=== PATIENT | female | born 1940 | race Caucasian/White ===

== ENCOUNTER 2022-10-07 07:56 | Inpatient (IN) | payer MEDICARE, MEDICAID ==
[2022-10-07] VITALS (9 sets, daily range): BP systolic 135–162; BP diastolic 59–98
[~2022-10-07] VITALS: Ht 155 cm; Wt 62.6 kg
[~2022-10-07 07:56] MED LIST: NICARDIPINE 100MCG/ML 10ML VIAL (CATH LAB) IV ONE; NITROGLYCERIN 50MCG/ML 10ML VIAL (CATH LAB) IV ONE
[2022-10-07] MEDS ORDERED: CLOP-31 PO (08:58)
[2022-10-07] MEDS ORDERED: AMLO10TA80 PO (08:58)
[2022-10-07] MEDS ORDERED: ATOR40TA70 PO (08:58)
[2022-10-07] MEDS ORDERED: LOSA50TA41 PO (08:58)
[2022-10-07] MEDS ORDERED: GABA-532 PO (08:58)
[2022-10-07] MEDS ORDERED: INSU100V40 (08:58)
[2022-10-07] MEDS ORDERED: CARV25TA47 PO (08:58)
[2022-10-07] MEDS ORDERED: ASCO-339 PO (09:04)
[2022-10-07] MEDS ORDERED: VITA400T9 PO (09:04)
[2022-10-07] MEDS ORDERED: VITA-261 PO (09:04)
[2022-10-07] MEDS ORDERED: LIDOCAINE HCL/PF 1% 10 MG/ML 5ML VIAL ONE (11:01)
[2022-10-07] MEDS ORDERED: IODIXANOL 320MG/ML 100 ML BOTTLE IV ONE (11:01)
[2022-10-07] MEDS ORDERED: HEPARIN 1000 UNITS/ML 10ML ONE (11:01)
[2022-10-07] MEDS ORDERED: FENTANYL CITRATE/PF 50MCG/ML 2ML VIAL ONE (11:01)
[2022-10-07] MEDS ORDERED: MIDAZOLAM HCL 2 MG/2 ML VIAL ONE (11:02)
[2022-10-07] MEDS ORDERED: ATROPINE SULFATE 1MG/10ML SYR ONE (11:24)
[2022-10-07] MEDS ORDERED: EPINEPHRINE 1:1000 1 MG/ML AMP ONE ×2 (11:27)
[2022-10-07] MEDS ORDERED: CLOPIDOGREL 75MG TABLET ONE (12:10)
[2022-10-07] MEDS ORDERED: ASPIRIN 325MG TABLET ONE (12:10)
[2022-10-07] MEDS ORDERED: ACETAMINOPHEN 325MG TABLET PO PRN (12:30)
[2022-10-07] MEDS: LOSARTAN POTASSIUM 25 MG TABLET PO SCH (12:30)
[2022-10-07] MEDS ORDERED: ONDANSETRON HCL 4MG/2ML INJ IV PRN (12:30)
[2022-10-07] MEDS ORDERED: ATROPINE SULFATE 1MG/10ML SYR IV PRN (12:30)
[2022-10-07] MEDS ORDERED: DEXTROSE 50% WATER 50ML SYRINGE IV PRN (14:45)
[2022-10-07] MEDS: BLOOD SUGAR DIAGNOSTIC STRIP TEST SCH ×2 (16:50→20:28)
[2022-10-07] MEDS: INSULIN LISPRO 100 UNITS/ML SUBCUT SCH ×2 (17:09→20:28)
[2022-10-07] MEDS: AMLODIPINE 5MG TABLET PO SCH (17:16)
[2022-10-07] MEDS: CARVEDILOL 3.125 MG TABLET PO SCH (20:31)
[2022-10-08 00:01] VITALS: BP 163/61
[2022-10-08 01:47] VITALS: BP 111/46
[2022-10-08 04:00] VITALS: BP 154/76
[2022-10-08] MEDS: BLOOD SUGAR DIAGNOSTIC STRIP TEST SCH (06:11)
[2022-10-08] MEDS: INSULIN LISPRO 100 UNITS/ML SUBCUT SCH ×2 (07:20→12:52)
[2022-10-08 07:22] LABS: BASOPHILS % 0.6 % (0.0-2.0); EOSINOPHILS % 1.6 % (0.0-5.0); HEMATOCRIT. 36.9 % (36.0-48.0); HEMOGLOBIN. 12.3 g/dL (12.0-16.0); LYMPHOCYTES % 15.7 % (20.0-50.0); MEAN CORPUSCULAR HEMOGLOBIN 28.7 pg (28.0-32.0); MEAN PLATELET VOLUME 9.2 fl (7.4-10.4); NEUTROPHILS % 73.1 % (40.0-76.0); PLATELET 178 x1000/uL (130-400); RED BLOOD CELL COUNT 4.29 mill/uL (4.2-5.4); RED CELL DISTRIBUTION WIDTH 15.2 % (11.6-14.6)
[2022-10-08 08:14] VITALS: BP 160/74
[2022-10-08] MEDS ORDERED: CLOPIDOGREL 75MG TABLET PO SCH (09:00)
[2022-10-08] MEDS ORDERED: ASPIRIN 325MG TABLET PO SCH (09:00)
[2022-10-08] MEDS: LOSARTAN POTASSIUM 25 MG TABLET PO SCH (09:41)
[2022-10-08] MEDS: CARVEDILOL 3.125 MG TABLET PO SCH (09:43)
[2022-10-08] MEDS: AMLODIPINE 5MG TABLET PO SCH (09:43)
[2022-10-08 11:52] VITALS: BP 152/60
== END 2022-10-08 13:10 | disposition home health service (06) | DRG 247 ==
LOC: CCL 07:56 → 3WST 07:57
PROVIDERS: ADMIT Specialist; ATTEND Specialist
PROC: 027034Z Dilation of Coronary Artery, One Artery with Drug-eluting Intraluminal Device, Percutaneous Approach (ICD-10-PCS; principal; 2022-10-07)
PROC: 4A023N7 Measurement of Cardiac Sampling and Pressure, Left Heart, Percutaneous Approach (ICD-10-PCS; 2022-10-07)
PROC: B211YZZ Fluoroscopy of Multiple Coronary Arteries using Other Contrast (ICD-10-PCS; 2022-10-07)
DX: I25.10 Atherosclerotic heart disease of native coronary artery without angina pectoris (principal); E11.9 Type 2 diabetes mellitus without complications; E78.5 Hyperlipidemia, unspecified; I10 Essential (primary) hypertension; Z79.02 Long term (current) use of antithrombotics/antiplatelets; Z79.4 Long term (current) use of insulin; Z79.899 Other long term (current) drug therapy
CPT/HCPCS: 36415; 80048; 82962; 83036; 83735; 85025; 85347; 92928; 93458; C1769; C1874; C1887; C1893; J0461; J1644; J1815; J2250; J3010; J3490; Q9967